=== PATIENT | female | born 1995 | race Caucasian/White ===

== ENCOUNTER 2025-03-15 14:00 | Emergency (ER) | payer SELFPAY ==
[~2025-03-15] VITALS: Ht 177.8 cm; Wt 64.0 kg
[2025-03-15 14:06] VITALS: TEMP 37.1; O2SAT 100
[2025-03-15] MEDS ORDERED: ACET-2708 MT (18:08)
[2025-03-15 18:33] VITALS: BP 115/64; PULSE 71; RESP 12; O2SAT 99
== END 2025-03-15 18:35 | disposition home or self-care (01) ==
LOC: ER 14:00
DX: S52.501B Unspecified fracture of the lower end of right radius, initial encounter for open fracture type I or II (principal); W18.30XA Fall on same level, unspecified, initial encounter; X58.XXXA Exposure to other specified factors, initial encounter; Y93.89 Activity, other specified; Y92.89 Other specified places as the place of occurrence of the external cause; Y99.8 Other external cause status
CPT/HCPCS: 29125; 73110; 99283